=== PATIENT | female | born 1995 | race Caucasian/White ===

== ENCOUNTER 2017-12-17 12:53 | Emergency (ER) | payer OTHER ==
[~2017-12-17] VITALS: Ht 152.4 cm; Wt 59.0 kg
[2017-12-17 13:10] VITALS: BP 109/66
--- NOTE | 2017-12-17 13:11 | NUR ---
Karon dee in [facility] - 12/17/17 at 1312 by [facility] Pt taken to bed 12.
[2017-12-17] MEDS ORDERED: ALBU0.0912 IH (13:18)
--- NOTE | 2017-12-17 13:19 | NUR ---
PATIENT AMB. TO BED #12
[2017-12-17] MEDS ORDERED: NACL 0.9% 1,000 ML IV ONE (13:30)
--- NOTE | 2017-12-17 13:30 | NUR ---
22/F presents to ED with complaints of vaginal bleeding x3 days ago. Pt was seen at [facility] and told she had a miscarriage. G-1 P-0, 13 weeks . Pt c/o lower abd cramping, 06/03. Skin warm and dry, normal in color for ethnicity. AOX4, ambulatory with steady gait. VSS.
[2017-12-17 14:00] LABS: HEMATOCRIT 42.9 % (36-48); HEMOGLOBIN 14.4 g/dL (12.0-16.0); MEAN CORPUSCULAR HEMOGLOBIN 30 pg (27-31); MEAN CORPUSCULAR HGB CONC 34 g/dL (33-37); MEAN CORPUSCULAR VOLUME 89.4 fL (80-94); PLATELET COUNT (AUTO) 345 K/uL (140-450); RED CELL DISTRIBUTION WIDTH 13.3 % (11.6-13.7); WHITE BLOOD COUNT (AUTO) 19.4 K/uL (4.5-11.0)
[2017-12-17 14:56] LABS: EOSINOPHILS % (MANUAL) 5 % (0-4); LYMPHOCYTES % (MANUAL) 12 % (20-46); MONOCYTES % (MANUAL) 7 % (5-12)
--- NOTE | 2017-12-17 15:00 | NUR ---
md at bedside evaluating pt
--- NOTE | 2017-12-17 15:27 | NUR ---
Karon dee in ED - 12/17/17 at 1616 by [email or web address] Patient discharged with v/s stable. Written and verbal after care instructions given and explained. Patient verbalized understanding. Ambulatory with steady gait. All questions addressed prior to discharge. Advised to follow up with PMD.
[2017-12-17] MEDS ORDERED: ACETAMINOPHEN EXTRA STRENGTH 500 MG TAB PO ONE (15:30)
[2017-12-17 16:00] VITALS: BP 110/66
--- NOTE | 2017-12-17 16:00 | NUR ---
Patient discharged with v/s stable. Written and verbal after care instructions given and explained. Patient verbalized understanding. Ambulatory with steady gait. All questions addressed prior to discharge. Advised to follow up with PMD.
== END 2017-12-17 15:27 | disposition home or self-care (01) ==
LOC: MED 12:53
DX: O03.9 Complete or unspecified spontaneous abortion without complication (principal); J45.909 Unspecified asthma, uncomplicated; Z79.899 Other long term (current) drug therapy
CPT/HCPCS: 36415; 81002; 81025; 82948; 84702; 85025; 96360; 99284; J7030

== ENCOUNTER 2017-12-18 15:21 | Inpatient (IN) | payer MEDICAID, OTHER ==
[~2017-12-18] VITALS: Ht 160 cm; Wt 58.7 kg
[~2017-12-18 15:21] MED LIST: ALBU0.0912 IH
[2017-12-18 15:40] VITALS: BP 109/56
--- NOTE | 2017-12-18 15:45 | NUR ---
PT AMBULATED TO BED 1
--- NOTE | 2017-12-18 15:45 | NUR ---
PATIENT PRESENTS TO ED WITH ABDOMINAL PAIN /. PT HAS BEEN HAVING DENIES N/V/; SKIN IS PINK/WARM/DRY; AAOX4 WITH EVEN AND STEADY GAIT; LUNGS CLEAR BL; HR EVEN AND REGULAR; PT DENIES ANY FEVER, CP, SOB, OR COUGH AT THIS TIME; PATIENT STATES PAIN OF 10/10 AT THIS TIME; VSS; PATIENT POSITIONED FOR COMFORT; HOB ELEVATED; BEDRAILS UP X2; BED DOWN. ER MD MADE AWARE OF PT STATUS.
[2017-12-18] MEDS ORDERED: NACL 0.9% 1,000 ML IV ONE (16:05)
[2017-12-18] MEDS ORDERED: KETOROLAC 30 MG/ML VIAL IVP ONE (16:05)
[2017-12-18 16:35] LABS: BASOPHILS # (AUTO) 0.2 K/uL (0.00-0.22); BASOPHILS % (AUTO) 1.6 % (0.0-2.0); EOSINOPHILS # (AUTO) 0.8 K/uL (0-0.4); EOSINOPHILS % (AUTO) 5.6 % (0.0-4.0); HEMATOCRIT 42.6 % (36-48); HEMOGLOBIN 13.6 g/dL (12.0-16.0); LYMPHOCYTES % (AUTO) 6.4 % (20.5-51.1); MEAN CORPUSCULAR HEMOGLOBIN 29 pg (27-31); MEAN CORPUSCULAR HGB CONC 32 g/dL (33-37); MEAN CORPUSCULAR VOLUME 90.2 fL (80-94); MONOCYTES # (AUTO) 1.4 K/uL (0.8-1.0); MONOCYTES % (AUTO) 9.2 % (1.7-9.3); NEUTROPHILS # (AUTO) 11.7 K/uL (1.8-7.7); NEUTROPHILS % (AUTO) 77.2 % (42.2-75.2); PLATELET COUNT (AUTO) 331 K/uL (140-450); RED BLOOD CELL COUNT(AUTO) 4.72 MIL/uL (4.20-5.40); RED CELL DISTRIBUTION WIDTH 13.4 % (11.6-13.7); WHITE BLOOD COUNT (AUTO) 15.1 K/uL (4.5-11.0)
[2017-12-18 16:42] LABS: ANION GAP 14.1 (8-16); CARBON DIOXIDE 23.8 mmol/L (21-32); CREATININE 0.6 mg/dL (0.6-1.3); POTASSIUM 3.9 mmol/L (3.5-5.1)
[2017-12-18 16:48] LABS: ALBUMIN 3.5 g/dL (3.4-5.0); TOTAL BILIRUBIN 0.2 mg/dL (0.0-1.0)
--- NOTE | 2017-12-18 17:00 | NUR ---
PELVIC EXAM DONE BY DR MAO AT BEDSIDE POST ULTRA SOUND. PROCEDURE TOLERATED WELL.
[2017-12-18 17:02] LABS: PROTHROMBIN TIME 10.6 secs (10.8-13.4)
[2017-12-18] MEDS ORDERED: DEXTROSE 5% IV ONE (17:40)
[2017-12-18] MEDS ORDERED: MORPHINE SULFATE 4 MG/ML SYR IVP ONE (17:40)
[2017-12-18] MEDS ORDERED: OXYTOCIN IV ONE (17:40)
[2017-12-18] MEDS ORDERED: OXYTOCIN 10 UNITS/ML VIAL ONE (17:50)
[2017-12-18 19:25] VITALS: BP 93/59
--- NOTE | 2017-12-18 19:25 | NUR ---
ADMITTED A 22F FROM ER. CAME BY NARGIS, ACCOMPANIED BY FRIEND. PT IS MED SURG. CAME DUE TO PELVIC PAIN AND VAGINAL BLEEDING X 4 DAYS ALREADY. DX: INCOMPLETE AB . PT IS AMBULATORY WITH IVF INFUSING ON THE LT Ac #20. D5W WITH 20 UNITS PITOCIN TO RUN @100 ML /HR PER ORDER.VITAL SIGNS TAKEN, AFEBRILE 98.0 - HR-77, BP -93/59, R-18. ORIENTED TO HOSPITAL ROUTINES.BED ON LOW POSITION. CALL LIGHT PLACED WITHIN EASY REACH. PLAN OF CARE DISCUSSED AND VERBALIZED UNDERSTANDING. MRSA NARES SPECIMEN COLLECTED .SEND TO LAB. SKIN INTACT. WILL FOLLOW UP ADMITTING ORDERS.
--- NOTE | 2017-12-18 19:38 | NUR ---
PAGED DR. Ilana GRIFFITH ON CELL PHONE BUT UNABLE TO LEAVE MESSAGE, IT SAY FULL AND CAN'T LEAVE ANY MESSAGE. SO TRIED THE PAGER @[phone] ,LEFT THE HOSPITAL PHONE NO. WILL WAIT FOR CALL BACK.
--- NOTE | 2017-12-18 19:38 | NUR ---
Patient will be admitted to care of DR FRENCH. Admited to MED SURGE. Will go to room 111A. Belongings list completed. Report to BRIAN CROSS.
[2017-12-18 19:46] LABS: APPEARANCE,URINE TURBID (CLEAR); BILIRUBIN,URINE 1+ (NEGATIVE); BLOOD, URINE 3+ (NEGATIVE); COLOR,URINE RED (YELLOW); LEUKOCYTE ESTERASE ,URINE NEGATIVE (NEGATIVE); NITRITE, URINE NEGATIVE (NEGATIVE); UGLUCOSE NEGATIVE (NEGATIVE)
[2017-12-18 19:50] LABS: RBC,URINE TOO NUMEROUS TO COUN /HPF (0-5); WBC,URINE 0-5 (RARE) /HPF (0-5)
--- NOTE | 2017-12-18 20:30 | NUR ---
DR. Ilana GRIFFITH HASN'T CALL BACK YET. LEATHA RN MATERIAL HANDLING TECHNICIAN HERE AND MADE HER AWARE. SHE WILL TRY TO CONTACT L AND D ALSO.
--- NOTE | 2017-12-18 21:59 | NUR ---
DR.T.T. GRIFFITH CAME AND SEEN ,TALKED TO PT. EXPLAINED ABOUT THE PROCEDURE TO BE DONE TONIGHT. DILATATION AND CURETTAGE. PT VERBALIZED UNDERSTANDING. PT LAST ATE AT 11:00 AM TODAY. JUST VOIDED.
[2017-12-18] MEDS ORDERED: ONDANSETRON 4 MG/2 ML VIAL IVP PRN ×3 (22:00→23:35)
[2017-12-18] MEDS ORDERED: ACETAMINOPHEN/CODEINE 300/30MG 1 TAB PO PRN (22:00)
[2017-12-18] MEDS ORDERED: MORPHINE SULFATE 4 MG/ML SYR IM/IVP PRN (22:00)
[2017-12-18] MEDS ORDERED: IBUPROFEN 800 MG TAB PO PRN (22:00)
--- NOTE | 2017-12-18 22:10 | NUR ---
PT MANUFACTURING ENGINEERING TECHNICIAN BY OR NURSE BY BED FOR SURGERY.
--- NOTE | 2017-12-18 22:37 | NUR ---
PATIENT OUT OF ROOM IN SURGERY OXYGEN SATURATION NOTED IN VITALS
[2017-12-18] MEDS ORDERED: PROPOFOL 200 MG/20 ML VIAL IV ONE (22:46)
[2017-12-18] MEDS ORDERED: SEVOFLURANE 250 ML BTL INH ONE (22:46)
[2017-12-18] MEDS ORDERED: LIDOCAINE MPF 2% 100 MG/5 ML VIAL INJ ONE (22:46)
[2017-12-18] MEDS ORDERED: MIDAZOLAM 2 MG/2 ML VIAL ONE (22:55)
[2017-12-19] VITALS: BP 100/60
--- NOTE | 2017-12-19 | NUR ---
BACK FROM SURGERY , S/P DILATATION AND CURETTAGE. PT IS AWAKE, WITH NO C/O ANY PAIN. WITH SCANTY VAGINAL BLEEDING. IVF INFUSING WELL ON THE LT AC . VITAL SIGN TAKEN ,STABLE. WILL CONTINUE TO MONITOR.
[2017-12-19 00:15] VITALS: BP 96/48
--- NOTE | 2017-12-19 00:42 | NUR ---
ABLE TO TALKED TO DR. FRENCH. PT HAS TO STAY FOR THE NIGHT. DR. GÓMEZ HAS TO SEE PT FIRST BEFORE DC HOME. PT MADE AWARE.
[2017-12-19 00:45] VITALS: BP 96/51
[2017-12-19 01:45] VITALS: BP 103/44
--- NOTE | 2017-12-19 01:45 | NUR ---
VITAL SIGNS TAKEN HAS BEEN STABLE. NO C/O ANY PAIN NOTED.
--- NOTE | 2017-12-19 03:00 | NUR ---
ASSISTED UP TO THE BATHROOM. ABLE TO VOID WELL. WITH SCANTY VAGINAL BLEEDING NOTED.
--- NOTE | 2017-12-19 05:00 | NUR ---
SLEEPING WELL AT THIS TIME. NO S/S OF ANY DISCOMFORT NOR PAIN NOTED.
[2017-12-19 07:05] LABS: BASOPHILS # (AUTO) 0.2 K/uL (0.00-0.22); BASOPHILS % (AUTO) 1.8 % (0.0-2.0); EOSINOPHILS # (AUTO) 0.6 K/uL (0-0.4); EOSINOPHILS % (AUTO) 5.9 % (0.0-4.0); HEMATOCRIT 34.6 % (36-48); HEMOGLOBIN 11.6 g/dL (12.0-16.0); LYMPHOCYTES # (AUTO) 1.9 K/uL (2.5-16.5); LYMPHOCYTES % (AUTO) 17.5 % (20.5-51.1); MEAN CORPUSCULAR HEMOGLOBIN 30 pg (27-31); MEAN CORPUSCULAR HGB CONC 33 g/dL (33-37); MEAN CORPUSCULAR VOLUME 90.1 fL (80-94); MONOCYTES % (AUTO) 8.9 % (1.7-9.3); NEUTROPHILS # (AUTO) 7.3 K/uL (1.8-7.7); NEUTROPHILS % (AUTO) 65.9 % (42.2-75.2); PLATELET COUNT (AUTO) 265 K/uL (140-450); RED BLOOD CELL COUNT(AUTO) 3.84 MIL/uL (4.20-5.40); RED CELL DISTRIBUTION WIDTH 13.5 % (11.6-13.7)
--- NOTE | 2017-12-19 07:05 | NUR ---
ENDORSED PT IN STABLE CONDITION TO AM NURSE.
--- NOTE | 2017-12-19 07:06 | NUR ---
RECEIVED REPORT FROM LOG CHAIN WORKER NURSE. PATIENT LYING DOWN IN BED TALKING WITH FAMILY MEMBER AT BEDSIDE. NO DISTRESS NOTED. DENIES ANY PAIN AT THIS TIME. REPORT HAVING INTERMITTENT CRAMPING ON UTERUS WHICH IS NORMAL SHE IS HEALING DUE TO S/P DNC YESTERDAY NIGHT 12/18/17. REPORTS HAVING SOME VAGINAL BLEEDING ON PERINEAL PAD. LUNGS CTA ON ALL LOBES. ABDOMEN SOFT, NON-DISTENDED. RESPIRATIONS EVEN, UNLABORED, ON ROOM AIR. AAOX4, CALM, COOPERATIVE, SKIN COLOR APPROPRIATE TO ETHNICITY, WARM TO TOUCH. IV SITE INTACT, PATENT, ON SALINE LOCK. REVIEWED PLAN OF CARE WITH PATIENT. PATIENT VERBALIZED UNDERSTANDING. SAFETY MEASURES IN PLACE, CALL LIGHT WITHIN REACH. WILL CONTINUE TO MONITOR.
[2017-12-19 07:54] VITALS: BP 97/58
[2017-12-19 08:41] LABS: ALBUMIN 2.8 g/dL (3.4-5.0); ANION GAP 12.4 (8-16); CARBON DIOXIDE 24.2 mmol/L (21-32); CREATININE 0.5 mg/dL (0.6-1.3); POTASSIUM 3.6 mmol/L (3.5-5.1); TOTAL BILIRUBIN 0.4 mg/dL (0.0-1.0)
--- NOTE | 2017-12-19 08:45 | NUR ---
DR. GÓMEZ AT BEDSIDE REVIEWING PLAN OF CARE WITH PATIENT. WILL CONTINUE TO MONITOR.
[2017-12-19] MEDS ORDERED: ONDA4TAB PO (08:57)
[2017-12-19] MEDS ORDERED: ACET-2869 PO (08:57)
--- NOTE | 2017-12-19 09:15 | NUR ---
DISCHARGE INSTRUCTIONS PROVIDED TO PATIENT/FAMILY MEMBER AT BEDSIDE IN PREFERRED LANGUAGE OF KYRGYZ. FOLLOW-UP INSTRUCTIONS WITH PCP, NEW/CHANGED MEDICATIONS, DIET REGIMEN, AND S/P DNC CARE PROVIDED. ANSWERED ALL OF PATIENT/FAMILY QUESTIONS. PATIENT/FAMILY VERBALIZED UNDERSTANDING. REMOVED IV LINE WITH MINIMAL BLOOD AND LUMEN COMPLETELY INTACT. ID BANDS REMOVED. PATIENT TO GET DRESSED. WILL CONTINUE TO MONITOR.
--- NOTE | 2017-12-19 09:25 | NUR ---
PATIENT ALL DRESSED UP AND READY TO GO HOME. ALL BELONGINGS WITH PATIENT. ESCORTED PATIENT DOWN TO LOBBY VIA AMBULATION WITH STEADY GAIT. REFUSED WHEELCHAIR DOWN TO LOBBY. PATIENT DISCHARGED AT THIS TIME TO HOME IN PRIVATE VEHICLE IN STABLE CONDITION.
--- NOTE | 2017-12-19 12:37 | NUR ---
CM NOTE INITIAL REVIEW FAXED TO [facility] [phone] LOUISE PH# [phone]
== END 2017-12-19 09:25 | disposition home or self-care (01) | DRG 544 ==
LOC: MED 15:21 → UNDOADMIN 18:42 → MTU 18:42
PROVIDERS: ADMIT Hospitalist; ATTEND Hospitalist
PROC: 10D17ZZ Extraction of Products of Conception, Retained, Via Natural or Artificial Opening (ICD-10-PCS; principal; 2017-12-18 22:30)
DX: O03.4 Incomplete spontaneous abortion without complication (principal); J45.20 Mild intermittent asthma, uncomplicated; O99.511 Diseases of the respiratory system complicating pregnancy, first trimester; Z3A.13 13 weeks gestation of pregnancy
CPT/HCPCS: 36415; 76830; 80053; 81001; 85025; 85610; 85730; 86886; 86900; 86901; 87081; 96361; 96374; 96375; 99285; J1885; J2001; J2250; J2270; J2590; J2704; J7030; J7060; J7120; Q0092